=== PATIENT | female | born 2000 | race Caucasian/White ===

== ENCOUNTER 2024-04-10 20:20 | Emergency (ER) | payer OTHER ==
[2024-04-10 20:26] VITALS: BP 101/64; PULSE 98; RESP 18; TEMP 99; BMI 21.4
[2024-04-10 22:15] LABS: PH,URINE 7.5 (5.0-8.0); URINE APPEARANCE CLEAR; URINE BILIRUBIN NEGATIVE (NEGATIVE); URINE COLOR YELLOW; URINE GLUCOSE (UA) NEGATIVE (NEGATIVE); URINE KETONE NEGATIVE (NEGATIVE); URINE LEUK ESTERASE NEGATIVE (NEGATIVE); URINE NITRITE NEGATIVE (NEGATIVE); URINE PROTEIN NEGATIVE (NEGATIVE)
[2024-04-10] MEDS ORDERED: KETOROLAC TROMETHAMINE 30 MG/1 ML VIAL ONE (22:50)
[2024-04-10] MEDS: KETOROLAC TROMETHAMINE 30 MG/1 ML VIAL IM ONE (23:00)
== END 2024-04-11 00:02 | disposition home or self-care (01) ==
LOC: JER 20:20
PROC: 3E0233Z Introduction of Anti-inflammatory into Muscle, Percutaneous Approach (ICD-10-PCS; principal; 2024-04-10)
DX: R10.12 Left upper quadrant pain (principal); R09.1 Pleurisy
CPT/HCPCS: 71046-TC-FY; 81003; 84703; 87086; 99284-25